=== PATIENT | female | born 1985 | race Caucasian/White ===

== ENCOUNTER 2020-10-17 17:46 | Emergency (ER) | payer BC, SELFPAY ==
[2020-10-17 17:48] VITALS: BP 107/82; PULSE 129; RESP 18; TEMP 36.4; O2SAT 95; BMI 23.6
--- NOTE | 2020-10-17 17:59 | HMH.EDGENADL ---
ED Disposition Clinical Impression: Dog bite of right arm Qualifiers: Encounter type: initial encounter Qualified Code(s): S41.151A - Open bite of right upper arm, initial encounter Disposition: Home, Self-Care Condition on Discharge: Fair Additional Instructions: You have been evaluated for dog bite to the right arm. Please take Augmentin as prescribed. Take Tylenol and ibuprofen for pain. Follow-up with your primary care doctor for wound check in 24 to 48 hours. Return to the emergency department for any new or worsening symptoms. Prescriptions: Hydrocod/Acet 5/325 mg [[place] 5/325mg tablet] 1 tab PO Q6HP PRN #9 tab PRN Reason: Severe Pain Transmission Status: Sent to [facility] Amoxicillin/Potassium Clav [Augmentin 875-125 Tablet] 1 tab PO Q12H #14 tab Transmission Status: Pending to [facility] Referrals: PCP,No [Primary Care Provider] - Time of Disposition: 19:04 - Critical Care Critical Care Time: No Attestation: On 10/17/20, the high probability of a clinically significant, sudden or life threatening deterioration of the following system(s) required my full and direct attention, intervention and personal management. The time I documented below is in addition to time spent performing reported procedures but includes the following listed in this critical care notation. Medical Decision Making - Medical Records Medical records reviewed: Yes: I reviewed the patient's medical records. - Fercho Inquiry Pt receiving controlled substance: No Vital Signs: 10/17/20 17:48 Temperature 97.6 F Temperature Source Oral Pulse Rate [Radial] 129 H Respiratory Rate 18 Blood Pressure [Right Arm] 107/82 L Blood Pressure Mean [Right Arm] 90 Blood Pressure Position [Right Arm] Sitting 02 Sat by Pulse Oximetry 95 Oxygen Delivery Method Room Air Orders (Tests/Meds): ED MEDICATIONS Discontinued Medications Generic Name Dose Route Start Last Admin Trade Name Freq PRN Reason Stop Dose Admin Hydrocodone Bitart/Acetaminophen 1 tab 10/17/20 18:36 10/17/20 18:46 Hydrocodone/Apap 5/325 Mg Tablet PO 10/17/20 18:37 1 tab ONCE ONE Administration Amoxicillin/Clavulanate Potassium 1 each 10/17/20 17:57 10/17/20 18:46 Amoxicillin/Pot Clavulan 500mg Tablet PO 10/17/20 17:58 1 each ONCE ONE Administration Protocol Ibuprofen 600 mg 10/17/20 17:59 10/17/20 18:47 Ibuprofen 600 Mg Tablet PO 10/17/20 18:00 600 mg ONCE ONE Administration Ondansetron HCl 4 mg 10/17/20 18:36 10/17/20 18:46 Ondansetron 4mg Odt SL 10/17/20 18:37 4 mg ONCE ONE Administration Tetanus/Reduced Diphtheria/Acell Pertussis 0.5 ml 10/17/20 17:57 10/17/20 19:41 Tet/Diphth/Pert-Adult 0.5ml Syringe IM 10/17/20 17:58 0.5 ml .ONCE ONE Administration - Radiology Data #1 Image(s): Elbow, Forearm Image Reviewed: Yes I reviewed the patient's radiology results, Yes I reviewed the patient's radiology image IMPRESSION: Soft tissue gas along the lateral aspect of the elbow and proximal forearm otherwise negative Medical Decision Narrative: In summary this is a 35-year-old female presenting to the emergency department with dog bites to her right arm. Patient clinically stable on arrival. Vital signs within normal limits. She does have swelling and bite arzola over the posterior hand, forearm, elbow. Concern for fracture or retained foreign body. Will obtain x-rays. tetanus updated Dog is a pet and may be observed for 14 days for signs of rabies. Wounds irrigated copiously with Hibiclens. Patient counseled that wound should not be tightly closed, due to risk of infection. Steri-Strips applied. Patient counseled to take Augmentin. She may shower. Check with PCP in 24 to 48 hours. Stable for discharge. General Adult HPI - General Stated complaint: [id number] dog bite left arm Time Seen by Provider: 10/17/20 17:59 - History of Present Illness
--- NOTE | 2020-10-17 18:14 | XR_ITS ---
PROCEDURE: XR ELBOW RT MIN 3V CLINICAL INDICATION: dog bite Laceration. Injury with pain COMPARISON: CR XR FOREARM RT 2V from 10/17/2020 FINDINGS: No fracture or dislocation. No lytic or blastic change. There is normal mineralization. The joint spaces are well-preserved. No significant degenerative/arthritic changes. No erosive changes evident. Other findings:Soft tissue gas is present in the antecubital fossa and along the proximal forearm laterally. No radiopaque foreign body apparent IMPRESSION: Soft tissue gas along the lateral aspect of the elbow and proximal forearm otherwise negative Dictated by: Luis Ramos MD 10/17/2020 19:32 Luis Ramos MD in [place] 10/17/2020 19:32
[2020-10-17 19:46] VITALS: BP 123/71; PULSE 87; RESP 17; TEMP 36.9; O2SAT 100
== END 2020-10-17 19:48 | disposition home or self-care (01) ==
PROVIDERS: Emergency Provider Emergency Medicine
DX: S41.151A Open bite of right upper arm, initial encounter (principal); S61.431A Puncture wound without foreign body of right hand, initial encounter; W54.0XXA Bitten by dog, initial encounter; Y92.017 Garden or yard in single-family (private) house as the place of occurrence of the external cause; Z23 Encounter for immunization
CPT/HCPCS: 73080; 73090; 90715; 99281

== ENCOUNTER → 2021-12-22 08:39 | Outpatient (CLI) | payer BC, SELFPAY ==
--- NOTE | 2021-12-22 09:04 | US_ITS ---
FINAL REPORT CLINICAL HISTORY: SKIN LESION OF NECK FINDINGS: Sonographic images were obtained of the palpable area of the right neck. There is a cystic mass in the right neck measuring 4.5 x 1.7 cm, nonspecific, cyst versus cystic neoplasm. IMPRESSION: Cyst versus cystic neoplasm. Neck CT with contrast may be helpful. Reviewed, Interpreted and Dictated by Esteban Paulson III, MD Transcribed by Virginia Galindo Authenticated and [facility]
== END ==
PROVIDERS: PCP Family Medicine; Visit Provider Family Medicine
DX: L98.9 Disorder of the skin and subcutaneous tissue, unspecified (principal)
CPT/HCPCS: 76536

== ENCOUNTER → 2021-12-31 12:46 | Outpatient (CLI) | payer BC, SELFPAY ==
--- NOTE | 2021-12-31 12:52 | CT_ITS ---
FINAL REPORT TECHNIQUE: Thin section axial CT images were obtained through the neck after intravenous contrast administration. Coronal and sagittal reformats were also obtained. This study was performed with techniques to keep radiation doses as low as reasonably achievable (ALARA). Individualized dose reduction techniques using automated exposure control or adjustment of mA and/or kV according to the patient''s size were employed. CLINICAL HISTORY: SWELLING,MASS/LUMP FINDINGS: Motion artifact is identified on many of the images. A marker was placed at the right neck at the level of the palpable abnormality. Beneath the marker is a low-attenuation mass measuring 52 x 36 x 33 mm seen anteromedial to the sternocleidomastoid and posterior to the submandibular gland. The appearance may represent a 2nd branchial cleft cyst or other cystic mass including cystic adenopathy. There is an 8 mm nodule in the posterior right thyroid lobe. IMPRESSION: Mass at the area of interest with differential diagnosis as above. Right thyroid lobe nodule. Recommend follow-up ultrasound. Reviewed, Interpreted and Dictated by Esteban Paulson III, MD Transcribed by Michelle Escobar Authenticated and [facility]
== END ==
PROVIDERS: PCP Family Medicine; Visit Provider Otolaryngology
DX: R22.1 Localized swelling, mass and lump, neck (principal)
CPT/HCPCS: 70491; Q9967

== ENCOUNTER 2022-04-26 09:52 | Emergency (ER) | payer BC, SELFPAY ==
[2022-04-26 09:53] VITALS: BP 114/64; PULSE 89; RESP 19; TEMP 37; O2SAT 98; BMI 23.2
--- NOTE | 2022-04-26 11:07 | EXP.UTC ---
Discharge Plan Disposition Patient Disposition: Home, Self-Care Condition: Good Prescriptions Prescriptions: New methylprednisolone [Medrol (Alexi)] 4 mg tablets,dose pack See Rx Instructions .Route .COMPLEX 6 Days Qty: 21 0RF Rx Instructions: taper pack; rgdexadtwrxqhfr-gmvxlrlcw-SE [Bromfed DM] 2-30-10 mg/5 mL Syrup 10 ml PO Q4H PRN (Reason: Cough) Qty: 240 0RF amoxicillin-pot clavulanate 875-125 mg Tablet 1 tab PO Q12H Qty: 14 0RF No Action amoxicillin-pot clavulanate 1 EACH tablet 1 tab PO Q12H Qty: 14 0RF hydrocodone-acetaminophen 1 TAB tablet 1 tab PO Q6HP PRN (Reason: Severe Pain) Qty: 9 0RF Referrals Follow up/Referrals: Lore Rueda MD [Primary Care Provider] - See instructions Activity Restrictions/Add. Instructions Additional Instructions/Restrictions: *Monitor Temp, Over the counter Motrin or Tylenol as directed/as needed Tylenol every 4 hours and Motrin every 6 hours (as long as your family doctor has told you that you can take it) for fever or pain. and straight to ER if unable to lower temp less than 101.0 after medication given *Warm salt water gargles may help to soothe the throat *Throat Lozenges? *Warm fluids like tea with honey may help to soothe the throat? *Sleep elevated *Humidifier/Vaporizer *Bromfed may cause drowsiness. Know how it effects you (your child) before driving, caring for small child, or sending your child to school. Not other antihistamines/allergy medications while taking bromfed Follow up IMMEDIATELY for new or worsening symptoms or no Noticeable improvement over the next 48-72 hours. 911 for difficulty breathing or swallowing Clinical Impressions Clinical Impression: Sinusitis Instructions Patient Instructions: DI for Sinusitis, Sinusitis Discharge ED [place] [facility] [place] General Stated complaint: Congestion, cough Mode of Arrival: Ambulatory Source of Information: Patient Limitations: No Limitations Time Seen by Provider: 04/26/22 11:07 Description of Symptoms (Recalled from Triage Doc. by RN): congested, cough, MANZANO HEENT Symptoms (Recalled from RN notes): Yes Resp Symptoms (Recalled from RN notes): No Skin Symptoms (Recalled from RN notes): No MS Symptoms (Recalled from RN notes): No Functional Status (Recalled from RN notes): n/a History of Present Illness Provider Complaint: Patient states that she has been sick over a week States that she has been having sinus pain and pressure, cough and headcongestion States that she has tried several over the counter medications but it hasnt helped so today she came in to get something for it Related Data Previous Rx's Medication Instructions Recorded amoxicillin 875 mg-potassium 1 tab PO Q12H #14 tabs 10/17/20 clavulanate 125 mg tablet hydrocodone 5 mg-acetaminophen 325 1 tab PO Q6HP PRN Severe Pain #9 10/17/20 mg tablet tabs amoxicillin 875 mg-potassium 1 tab PO Q12H #14 tabs 04/26/22 clavulanate 125 mg tablet rhiolvoqkjxmmnd-xsnubrvqgwhflxr-LI 10 ml PO Q4H PRN Cough #240 mL 04/26/22 2 mg-30 mg-10 mg/5 mL oral syrup (Bromfed DM) methylprednisolone 4 mg tablets in See Rx Instructions .Route 04/26/22 a dose pack (Medrol (Alexi)) .COMPLEX 6 days #21 tabs Allergies Allergy/AdvReac Type Severity Reaction Status Date / Time No Known Allergies Allergy Verified 10/17/20 19:17 Worker's Comp Is this a Worker's Comp case?: No PFSH PFSH Social History Smoking Status: Never smoker alcohol intake: never current occupational status: employed Travel in the last 8 weeks: None ROS Obtained: Yes All systems reviewed & no additional complaints except as documented and Yes Systems reviewed as appropriate & no additional complaints except as documented Constitutional Constitutional: Reports system reviewed and no additional complaints, except as documented and Reports as per HPI ENT Ears, Nose, Mouth, and Throat: Reports system
[2022-04-26 11:25] VITALS: BP 114/64; PULSE 89; RESP 18; TEMP 37; O2SAT 98
== END 2022-04-26 11:25 | disposition home or self-care (01) ==
PROVIDERS: Emergency Provider Nurse Practitioner; PCP Family Medicine
DX: J32.9 Chronic sinusitis, unspecified (principal); R05.9 Cough, unspecified; R51.9 Headache, unspecified; Z79.1 Long term (current) use of non-steroidal anti-inflammatories (NSAID); Z79.52 Long term (current) use of systemic steroids

== ENCOUNTER 2024-07-29 08:41 | Emergency (ER) | payer OTHER, SELFPAY ==
[2024-07-29 09:06] VITALS: BP 115/62; PULSE 82; RESP 18; TEMP 37.2; O2SAT 100; BMI 24.6
[2024-07-29 09:16] LABS: UTC Strep Screen (Rapid) Negative (Negative)
--- NOTE | 2024-07-29 10:00 | EXP.UTC ---
Discharge Plan Disposition Patient Disposition: Home, Self-Care Condition: Good Prescriptions Prescriptions: New cefdinir 300 mg capsule 300 mg PO Q12H 10 Days Qty: 20 0RF fluticasone propionate [Flonase Allergy Relief] 50 mcg/actuation spray,suspension 1 spray intranasal DAILY Qty: 16 0RF Rx Instructions: administer into each nostril lcyrzbplyzkpmhb-czoycqopj-HQ [Bromfed DM] 2-30-10 mg/5 mL syrup 10 ml PO Q4-6H PRN (Reason: cough/sinus ) Qty: 120 0RF Referrals Follow up/Referrals: Lore Rueda MD [Primary Care Provider] - See instructions Activity Restrictions/Add. Instructions Additional Instructions/Restrictions: Take medication as prescribed. Increase fluids and rest. Tylenol/Ibuprofen as needed for pain/fever. If symptoms persist or worsen, return to clinic/PCP. Clinical Impressions Clinical Impression: Middle ear infection affecting both ears, Upper respiratory tract infection Instructions Patient Instructions: DI for Middle Ear Infection-Adult, DI for Viral Upper Respiratory Infection -- Adult Print Language Print Language: Andorran Discharge ED Provider: Arianne Haines [facility] General Stated complaint: sore throat, ear pain Mode of Arrival: Ambulatory Source of Information: Patient Time Seen by Provider: 07/29/24 10:00 Description of Symptoms (Recalled from Triage Doc. by RN): SORE THROAT, COUGH, CONGESTION, BILATERAL EAR PAIN HEENT Symptoms (Recalled from RN notes): Yes Resp Symptoms (Recalled from RN notes): Yes Skin Symptoms (Recalled from RN notes): No MS Symptoms (Recalled from RN notes): No Functional Status (Recalled from RN notes): WNL History of Present Illness Provider Complaint: Pt reports that she has had a sore throat, bilateral ear pain, cough, and congestion for Related Data Previous Rx's ?Medication ?Instructions ?Recorded oqjyvwpyyyhhzpn-mewmfjwjoxaszjq-RL 10 ml PO Q4-6H PRN cough/sinus 07/29/24 2 mg-30 mg-10 mg/5 mL oral syrup #120 mL (Bromfed DM) cefdinir 300 mg capsule 300 mg PO Q12H 10 days #20 caps 07/29/24 fluticasone propionate 50 1 spray intranasal DAILY #16 grams 07/29/24 mcg/actuation nasal spray,suspension (Flonase Allergy Relief) Allergies Allergy/AdvReac Type Severity Reaction Status Date / Time No Known Allergies Allergy Verified 10/17/20 19:17 Worker's Comp Is this a Worker's Comp case?: No [facility] Disclaimer: The information contained in this section may have been updated after the patient was seen, as this information can be updated by other users. Social History (Updated 04/26/22 @ 11:19 by Leigh Boyce APRN) Smoking Status: Never smoker alcohol intake: never current occupational status: employed Travel in the last 8 weeks: None Have you lived/traveled outside [place] in past 30 days?: No Contact w/someone who lives/traveled outside [place] past 30 days?: No Exposure to someone with infectious disease in past 14 days?: No Do you have a fever (greater than 100.4 F or 38 C)?: No Have you tested positive for COVID-19: No Exposed to someone with COVID-19 in past 14 days?: No Do you have a sore throat?: Yes Do you have a cough?: No Do you have any weakness?: No Do you have any diarrhea?: No Are you experiencing any unusual bleeding?: No Do you have any muscle aches/pain?: No Do you have any abdominal pain?: No Are you experiencing loss of taste or smell?: No ROS Obtained: Yes All systems reviewed & no additional complaints except as documented Constitutional Constitutional: Reports system reviewed and no additional complaints, except as documented Eyes Eyes: Reports system reviewed and no additional complaints, except as documented ENT Ears, Nose, Mouth, and Throat: Reports system reviewed and no additional complaints, except as documented, Reports otalgia, Reports nasal congestion, Reports nasal discharge and Reports sore throat Cardiovascular Cardiovascular: Reports system reviewed and no additional complaints, except as documented Respiratory Respiratory: Reports system reviewed and no additional complaints, except as documented Gastrointestinal Gastrointestingal: Reports system reviewed and no additional complaints, except as documented Genitourinary Female Genitourinary: Reports system reviewed and no additional complaints, except as documented Musculoskeletal Musculoskeletal: Reports system reviewed and no additional complaints, except as documented Integumentary/Breasts Skin/Breast: Reports system reviewed and no additional complaints, except as documented Neurologic Neurologic: Reports system reviewed and no additional complaints, except as documented Endocrine Endocrine: Reports system reviewed and no additional complaints, except as documented Hematologic/Lymphatic Henatologic/Lymphatic: Reports system reviewed and no additional complaints, except as documented Allergic/Immunologic Allergic/Immunologic: Reports system reviewed and no additional complaints, except as documented Physical Exam General General appearance: alert Comment: ill appearing Head Head exam: atraumatic and normocephalic Eye Eye exam: Present normal appearance Expanded ENT Exam External ear exam: Present normal external inspection TM/Canal exam: Bilateral TM: bulging, effusion and loss of landmarks Nose exam: Absent sinus tenderness Nasal speculum exam: Bilateral: other (clear drainage; edematous mucosa) Mouth exam: Present normal external inspection Teeth exam: Present normal inspection Throat exam: Present normal inspection Comment: post nasal drainage Neck Neck exam: Present normal inspection; Absent lymphadenopathy Chest Chest inspection: Present normal inspection and symmetric chest wall rise Respiratory Respiratory exam: Present normal lung sounds bilaterally Cardiovascular Cardiovascular exam: Present regular rate, normal rhythm and normal heart sounds Abdominal Exam Abdominal exam: Present soft and normal bowel sounds Extremities Exam Extremities exam: Present normal inspection Back Exam Back exam: Present normal inspection Neurological Exam Neurological exam: Present alert and oriented X3 Psychiatric Psychiatric exam: Present normal affect and normal mood Skin Skin exam: Present warm, dry and intact Lymphatic Lymphatic Findings: no adenopathy Medical Decision Making Medical Records Screening: Per USPSTF and CDC recommendations, given the prevalence of disease in our region, it is our hospital?s policy to screen for HIV and viral Hepatitis for all patients aged 18 and over and those with ongoing risk factors. Fercho Inquiry Pt receiving controlled substance: No Fercho was queried for this patient: No Vital Signs: 07/29/24 09:06 Temperature 98.9 F Temperature Source Oral Pulse Rate [Left Radial] 82 Respiratory Rate 18 Blood Pressure [Left Arm] 115/62 Blood Pressure Mean [Left Arm] 79 02 Sat by Pulse Oximetry 100 Lab Data Lab results reviewed: Yes I reviewed the patient's lab results. Lab Results 07/29/24 09:06: Strep Scn Rapid Clinic Negative Orders (Tests/Meds): ORDERS Category Date Time Status Strep Screen Confirmation Stat Micro 07/29/24 09:06 Received
[2024-07-29 10:20] VITALS: BP 115/62; PULSE 82; RESP 18; TEMP 37.2
== END 2024-07-29 10:24 | disposition home or self-care (01) ==
PROVIDERS: Emergency Provider Nurse Practitioner Family; PCP Family Medicine
DX: J06.9 Acute upper respiratory infection, unspecified (principal); H66.93 Otitis media, unspecified, bilateral
CPT/HCPCS: 87880; 99213; G0381